=== PATIENT | male | born 1985 | race Caucasian/White ===

== ENCOUNTER 2016-09-01 10:21 | Emergency (ER) | payer OTHER ==
--- NOTE | 2016-09-01 10:58 | ED ---
Extremity Problem HPI - General Chief complaint: Extremity Problem,Nontraumatic Stated complaint: Left Leg swelling/pain Time Seen by Provider: 09/01/16 10:51 Source: patient, RN notes reviewed Mode of arrival: ambulatory Limitations: no limitations - History of Present Illness Initial comments: 31-year-old male presents emergency room chief complaint of swelling to left foot x-ray. Patient has noticed it for about 10 days. Patient states it is tender to touch and posterior calf. Patient admits to smoking but denies any history of long trips except as any family history of blood clots. Patient states it just keeps saying about things that he was concerned. Patient states the family has similar symptoms. Patient states he's never had this before. Patient states he is on his feet all day at work but does have some side-to- side movement. Patient states he is concerned due to the swelling. He should be evaluated.Patient denies any recent fever, chills, shortness of breath, chest pain, back pain, abdominal pain, nausea vomiting, numbness or tingling, dysuria or hematuria, constipation or diarrhea, headaches or visual changes, or any other current symptoms. - Related Data Home Medications Medication Instructions Recorded Confirmed No Known Home Medications [No 09/01/16 09/01/16 Known Home Medications] Allergies Allergy/AdvReac Type Severity Reaction Status Date / Time No Known Allergies Allergy Verified 09/01/16 11:32 Review of Systems ROS Statement: Those systems with pertinent positive or pertinent negative responses have been documented in the HPI. ROS Other: All systems not noted in ROS Statement are negative. Past Medical History Past Medical History: No Reported History History of Any Multi-Drug Resistant Organisms: None Reported Past Surgical History: No Surgical Hx Reported Past Psychological History: No Psychological Hx Reported Smoking Status: Current every day smoker Past Alcohol Use History: None Reported Past Drug Use History: None Reported General Exam - General Exam Comments Initial Comments: General: The patient is awake and alert, in no distress, and does not appear acutely ill. Neck: The neck is supple, there is no tenderness. Cardiovascular: There is a regular rate and rhythm. No murmur, rub or gallop is appreciated. Respiratory: Lungs are clear to auscultation, respirations are non-labored, breath sounds are equal. No wheezes, stridor, rales, or rhonchi. Musculoskeletal: Sensation intact with 2+ pulses throughout the left +. Full range of motion of left knee and left ankle. Patient has multiple varicose veins the did have some palpable cords noted. There does not appear to be grossly to leg just associated with varicose veins. No associated erythema. Neurological: CN II-XII intact, There are no obvious motor or sensory deficits. Coordination appears grossly intact. Speech is normal. Skin: Skin is warm and dry and no rashes or lesions are noted. Psychiatric: Normal mood and affect. Limitations: no limitations Course Vital Signs 09/01/16 10:46 Temperature 99.4 F Pulse Rate 69 Respiratory 20 Rate Blood Pressure 127/79 O2 Sat by Pulse 99 Oximetry Medical Decision Making - Medical Decision Making 31-year-old male presents with what appears to be varicose veins. This time there does not appear to be a DVT. The patient's lower externa. This time we discussed patient's symptoms are most likely due to his varicosities. We did discuss that he should wear OLVIN hose at work. We did discuss follow-up and gave him vascular surgery. This all the patient's questions. He stated he understood and plan. He will be discharged home. - Radiology Data Radiology results: image reviewed Interpreted by me: no DVT per US tech Disposition Clinical Impression: Varicose veins of left lower extremity Disposition: HOME SELF-CARE Condition: Stable Instructions: Varicose Veins (ED) Additional Instructions: Please use medication as discussed. Please follow up with family doctor if symptoms have not improved over the next two days. Please return to the emergency room if your symptoms increase or worsen or for any other concerns. Referrals: Paresh Pang MD [STAFF PHYSICIAN] - 1-2 days Time of Disposition: 11:36
[2016-09-01 11:46] VITALS: BP 105/71; PULSE 59; RESP 18; TEMP 98.1
--- NOTE | 2016-09-01 12:08 | US ---
EXAMINATION TYPE: US venous doppler duplex LE LT DATE OF EXAM: 09/01/2016 11:25 AM COMPARISON: NONE CLINICAL HISTORY: Pain. Patient has extensive, visible varicosities throughout left leg. SIDE PERFORMED: Left TECHNIQUE: The lower extremity deep venous system is examined utilizing real time linear array sonog diane with graded compression, doppler sonography and color-flow sonography. VESSELS IMAGED: External Iliac Vein (EIV) Common Femoral Vein Deep Femoral Vein Greater Saphenous Vein * Femoral Vein Popliteal Vein Proximal Calf Veins (* superficial vessels) There is a lump in the left groin that corresponds to a varicosity, also nodes noted left groin. Vari cosities noted throughout, are compressible. Left Leg: Negative for DVT Grayscale, color doppler, spectral doppler imaging performed of the deep veins of the lower extremi ties. There is normal flow, compressibility, vascular waveforms bilaterally. IMPRESSION: No evident deep venous arthrosis within the left lower extremity. Large varices present.
== END 2016-09-01 11:46 | disposition home or self-care (01) ==
LOC: EC 10:21
DX: I83.812 Varicose veins of left lower extremity with pain (principal); I83.892 Varicose veins of left lower extremity with other complications; F17.200 Nicotine dependence, unspecified, uncomplicated
CPT/HCPCS: 99283